=== PATIENT | male | born 1965 | race Two or more races ===

== ENCOUNTER → 2017-10-19 | Emergency (ER) | payer OTHER ==
[~2017-10-19] VITALS: Ht 182.9 cm; Wt 106.1 kg
== END | disposition left against medical advice (07) ==
LOC: ER 10:30
DX: Z53.20 Procedure and treatment not carried out because of patient's decision for unspecified reasons (principal)

== ENCOUNTER 2019-03-11 08:48 | Outpatient (CLI) | payer OTHER | END 2019-03-11 08:55 | disposition home or self-care (01) | LOC: TOM 08:48 | DX: J44.1 Chronic obstructive pulmonary disease with (acute) exacerbation (principal); J30.1 Allergic rhinitis due to pollen; R06.02 Shortness of breath; Z72.0 Tobacco use ==